=== PATIENT | male | born 2000 | race American Indian/Alaskan Native ===

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

== ENCOUNTER 2022-03-27 11:12 | Emergency (ER) | payer MEDICAID, OTHER ==
[2022-03-27 11:12] VITALS: BP 145/78; PULSE 73
[2022-03-27 12:22] LABS: CORONAVIRUS COVID-19 NAA NEGATIVE (NEGATIVE); RESPIRATORY SYNCYTIAL VIR NAA NEGATIVE (NEGATIVE)
== END 2022-03-27 12:50 | disposition home or self-care (01) ==
LOC: DL.ED 11:12
DX: R51.9 Headache, unspecified (principal); R09.81 Nasal congestion; F17.210 Nicotine dependence, cigarettes, uncomplicated; E66.9 Obesity, unspecified; Z68.33 Body mass index [BMI] 33.0-33.9, adult; Z20.822 Contact with and (suspected) exposure to COVID-19
CPT/HCPCS: 0241U; 99283; 99284

== ENCOUNTER 2022-10-28 21:16 | Emergency (ER) | payer OTHER, MEDICAID | END 2022-10-28 22:30 | disposition left against medical advice (07) | LOC: DL.ED 21:16 | DX: Z53.21 Procedure and treatment not carried out due to patient leaving prior to being seen by health care provider (principal) ==

== ENCOUNTER 2022-11-01 02:14 | Emergency (ER) | payer OTHER, MEDICAID ==
[2022-11-01 02:30] VITALS: BP 139/79; PULSE 103
[2022-11-01] MEDS ORDERED: Ketorolac 30 MG/ML SDV IM ONE (03:24)
== END 2022-11-01 04:01 | disposition home or self-care (01) ==
LOC: DL.ED 02:14
DX: S62.345A Nondisplaced fracture of base of fourth metacarpal bone, left hand, initial encounter for closed fracture (principal); E66.9 Obesity, unspecified; Z68.34 Body mass index [BMI] 34.0-34.9, adult; W22.8XXA Striking against or struck by other objects, initial encounter
CPT/HCPCS: 29125; 73090-LT; 73130-LT; 96372; 99282; 99283; J1885

== ENCOUNTER 2023-06-17 23:37 | Emergency (ER) | payer OTHER ==
[2023-06-17 23:42] LABS: BASOPHILS PERCENT AUTO 0.4 % (0.0-1.0); HEMATOCRIT 42.4 % (40.0-54.0); HEMOGLOBIN 14.8 g/dL (14.0-18.0); LYMPHOCYTES PERCENT AUTO 41.6 % (20.5-50.1); MEAN CORPUSCULAR HEMOGLOBIN 29.9 pg (27.0-34.0); MEAN CORPUSCULAR HGB CONC 34.9 g/dL (33.0-35.0); MEAN CORPUSCULAR VOLUME 85.7 fL (80-100); MONOCYTES PERCENT AUTO 8.2 % (2-8); NEUTROPHILS PERCENT AUTO 45.8 % (42.2-75.2); PLATELET COUNT,PLT 334 10^3/uL (150-450); RED BLOOD CELL COUNT 4.95 10^6/uL (4.6-6.2); WHITE BLOOD CELL COUNT,WBC 8.9 10^3/uL (5.0-10.0)
[2023-06-17 23:50] LABS: AMPHETAMINES,URINE NEGATIVE (NEGATIVE); BARBITURATES,URINE NEGATIVE (NEGATIVE); BENZODIAZEPINE,URINE NEGATIVE (NEGATIVE); MDMA (ECSTASY), URINE NEGATIVE (NEGATIVE); METHADONE,URINE NEGATIVE (NEGATIVE); METHAMPHETAMINES,URINE NEGATIVE (NEGATIVE); OPIATES,URINE NEGATIVE (NEGATIVE); OXYCODONE,URINE NEGATIVE (NEGATIVE); PHENCYCLIDINE,URINE NEGATIVE (NEGATIVE); TCA,URINE NEGATIVE (NEGATIVE)
[2023-06-17 23:51] VITALS: BP 118/67; PULSE 81
[2023-06-17] MEDS: LORazepam 1 MG Tab PO ONE (23:53)
[2023-06-18 00:03] LABS: ALANINE AMINOTRANSFERASE,ALT 46 U/L (16-63); ALBUMIN 4.1 g/dL (3.4-5.0); ALKALINE PHOSPHATASE 75 U/L (46-116); ANION GAP 18.4 mEq/L (7-13); ASPARTATE AMNIOTRANSFERASE,AST 23 U/L (15-37); BILIRUBIN TOTAL 0.6 mg/dL (0.2-1.0); BLOOD UREA NITROGEN,BUN 20 mg/dL (7-18); CALCIUM 8.8 mg/dL (8.5-10.1); CARBON DIOXIDE,CO2 21 mmol/L (21-32); CHLORIDE,CL 101 mmol/L (98-107); CREATININE 1.11 mg/dL (0.70-1.30); GLUCOSE RANDOM 108 mg/dL (70-99); POTASSIUM,K 3.4 mmol/L (3.5-5.1); PROTEIN TOTAL,TP 8.1 g/dL (6.4-8.2); SODIUM,NA 137 mmol/L (136-145)
[2023-06-18 00:05] LABS: ESTIMATED GFR 97 mL/min (>=60)
== END 2023-06-18 00:26 | disposition home or self-care (01) ==
LOC: DL.ED 23:37
DX: F41.9 Anxiety disorder, unspecified (principal); R07.9 Chest pain, unspecified; Z79.899 Other long term (current) drug therapy
CPT/HCPCS: 36415; 71045; 80053; 80305; 84484; 85025; 93005; 93010; 99284; 99285; A9270

== ENCOUNTER 2023-06-30 12:27 | Emergency (ER) | payer OTHER ==
[2023-06-30 12:43] VITALS: BP 119/93; PULSE 70
[2023-06-30 12:43] LABS: BASOPHILS PERCENT AUTO 0.6 % (0.0-1.0); EOSINOPHILS PERCENT AUTO 3.8 % (1.0-3.0); HEMATOCRIT 48.1 % (40.0-54.0); HEMOGLOBIN 16.8 g/dL (14.0-18.0); LYMPHOCYTES PERCENT AUTO 42.9 % (20.5-50.1); MEAN CORPUSCULAR HEMOGLOBIN 29.6 pg (27.0-34.0); MEAN CORPUSCULAR HGB CONC 34.9 g/dL (33.0-35.0); MEAN CORPUSCULAR VOLUME 84.7 fL (80-100); MONOCYTES PERCENT AUTO 9.4 % (2-8); NEUTROPHILS PERCENT AUTO 43.3 % (42.2-75.2); PLATELET COUNT,PLT 363 10^3/uL (150-450); RED BLOOD CELL COUNT 5.68 10^6/uL (4.6-6.2); WHITE BLOOD CELL COUNT,WBC 6.6 10^3/uL (5.0-10.0)
[2023-06-30] MEDS: Sodium Chloride 0.9% 1,000 ML IV ONE (12:59)
[2023-06-30 13:01] LABS: ALANINE AMINOTRANSFERASE,ALT 30 U/L (16-63); ALBUMIN 4.7 g/dL (3.4-5.0); ALKALINE PHOSPHATASE 93 U/L (46-116); ANION GAP 17.9 mEq/L (7-13); ASPARTATE AMNIOTRANSFERASE,AST 20 U/L (15-37); BLOOD UREA NITROGEN,BUN 15 mg/dL (7-18); BUN/CREATININE RATIO 13.3 (No establ ref range); C-REACTIVE PROTEIN < 0.50 ng/dL (<=0.50); CARBON DIOXIDE,CO2 23 mmol/L (21-32); CHLORIDE,CL 103 mmol/L (98-107); CREATININE 1.13 mg/dL (0.70-1.30); EST CRCL DRUG DOSING (CG) 100.04 mL/min; ESTIMATED GFR 95 mL/min (>=60); GLUCOSE RANDOM 94 mg/dL (70-99); POTASSIUM,K 3.9 mmol/L (3.5-5.1); PROTEIN TOTAL,TP 9.3 g/dL (6.4-8.2); SODIUM,NA 140 mmol/L (136-145)
[2023-06-30] MEDS: Iopamidol 755 Mg/ML 100 ML Bottle IVPUSH ONE (13:37)
[2023-06-30] MEDS: Iopamidol 612 MG/ML 100 ML Bottle IVPUSH ONE (13:37)
[2023-06-30 13:44] LABS: APPEARANCE,URINE CLEAR (CLEAR); BILIRUBIN,URINE NEGATIVE (NEGATIVE); COLOR,URINE YELLOW (YELLOW); GLUCOSE,URINE NEGATIVE (NEGATIVE); KETONES,URINE NEGATIVE (NEGATIVE); LEUKOCYTE ESTERASE,URINE NEGATIVE (NEGATIVE); NITRITE,URINE NEGATIVE (NEGATIVE); OCCULT BLOOD,URINE NEGATIVE (NEGATIVE); PH,URINE 8.5 (5.0-9.0); PROTEIN,URINE NEGATIVE (NEGATIVE); UROBILINOGEN,URINE 0.2 mg/dL (0.2-1.0)
[2023-06-30 13:45] LABS: BARBITURATES,URINE NEGATIVE (NEGATIVE); BENZODIAZEPINE,URINE NEGATIVE (NEGATIVE); MDMA (ECSTASY), URINE NEGATIVE (NEGATIVE); METHADONE,URINE NEGATIVE (NEGATIVE); METHAMPHETAMINES,URINE NEGATIVE (NEGATIVE); OPIATES,URINE NEGATIVE (NEGATIVE); TCA,URINE NEGATIVE (NEGATIVE)
[2023-06-30 13:46] LABS: AMPHETAMINES,URINE NEGATIVE (NEGATIVE); OXYCODONE,URINE NEGATIVE (NEGATIVE); PHENCYCLIDINE,URINE NEGATIVE (NEGATIVE)
== END 2023-06-30 14:44 | disposition home or self-care (01) ==
LOC: DL.ED 12:27
DX: R07.89 Other chest pain (principal); F41.9 Anxiety disorder, unspecified; E66.9 Obesity, unspecified; Z68.37 Body mass index [BMI] 37.0-37.9, adult; Z79.899 Other long term (current) drug therapy
CPT/HCPCS: 36415; 71275; 80053; 80305; 81003; 83690; 84484; 85025; 86140; 93005; 99285; J7030; Q9967

== ENCOUNTER 2024-11-06 16:25 | Emergency (ER) | payer OTHER ==
[2024-11-06 16:49] LABS: BASOPHILS PERCENT AUTO 0.2 % (0.0-1.0); EOSINOPHILS PERCENT AUTO 0.8 % (1.0-3.0); LYMPHOCYTES PERCENT AUTO 16.0 % (20.5-50.1); MONOCYTES PERCENT AUTO 3.4 % (2-8); NEUTROPHILS PERCENT AUTO 79.6 % (42.2-75.2); PLATELET COUNT,PLT 348 10^3/uL (150-450); RED BLOOD CELL COUNT 5.43 10^6/uL (4.6-6.2); WHITE BLOOD CELL COUNT,WBC 9.7 10^3/uL (5.0-10.0)
[2024-11-06 17:00] LABS: A/G RATIO 1.1; ALANINE AMINOTRANSFERASE,ALT 27 U/L (16-63); ASPARTATE AMNIOTRANSFERASE,AST 23 U/L (15-37); BILIRUBIN TOTAL 0.6 mg/dL (0.2-1.0); BLOOD UREA NITROGEN,BUN 10 mg/dL (7-18); CARBON DIOXIDE,CO2 16 mmol/L (21-32); CHLORIDE,CL 108 mmol/L (98-107); CREATININE 1.28 mg/dL (0.70-1.30); ETHANOL BLOOD MEDICAL 237 mg/dL (0); GLUCOSE RANDOM 104 mg/dL (70-99); POTASSIUM,K 3.0 mmol/L (3.5-5.1); PROTEIN TOTAL,TP 8.8 g/dL (6.4-8.2)
[2024-11-06 17:03] LABS: SODIUM,NA 145 mmol/L (136-145)
[2024-11-06 17:04] LABS: ESTIMATED GFR 81 mL/min (>=60)
[2024-11-06 17:05] LABS: LACTIC ACID 9.5 mmol/L (0.4-2.0)
[2024-11-06] MEDS ORDERED: Sodium Chloride 0.9% 10 ML Syringe FLUSH PRN (17:16)
[2024-11-06] MEDS ORDERED: Midazolam 1 MG/ML 2 ML SDV IV ONE (17:52)
[2024-11-06] MEDS: Midazolam 1 MG/ML 2 ML SDV IVPUSH ONE (17:54)
[2024-11-06] MEDS ORDERED: diphenhydrAMINE 50 MG/ML SDV IVPUSH ONE (18:02)
[2024-11-06] MEDS ORDERED: diphenhydrAMINE 50 MG/ML SDV ONE (18:02)
[2024-11-06] MEDS ORDERED: diphenhydrAMINE 50 MG/ML SDV IV ONE (18:05)
[2024-11-06 18:22] LABS: APPEARANCE,URINE CLEAR (CLEAR); GLUCOSE,URINE NEGATIVE (NEGATIVE); OCCULT BLOOD,URINE SMALL (NEGATIVE)
[2024-11-06 18:24] LABS: AMPHETAMINES,URINE NEGATIVE (NEGATIVE); BARBITURATES,URINE NEGATIVE (NEGATIVE); MDMA (ECSTASY), URINE NEGATIVE (NEGATIVE); METHAMPHETAMINES,URINE NEGATIVE (NEGATIVE); OPIATES,URINE NEGATIVE (NEGATIVE); OXYCODONE,URINE NEGATIVE (NEGATIVE); PHENCYCLIDINE,URINE NEGATIVE (NEGATIVE); TCA,URINE NEGATIVE (NEGATIVE)
[2024-11-06 18:33] LABS: EPITHELIAL CELLS,URINE FEW /HPF (NOT SEEN)
[2024-11-06 19:46] VITALS: BP 115/54; PULSE 91
== END 2024-11-06 21:14 | disposition home or self-care (01) ==
LOC: DL.ED 16:25
DX: F10.129 Alcohol abuse with intoxication, unspecified (principal); E87.20 Acidosis, unspecified; R04.0 Epistaxis; Z79.899 Other long term (current) drug therapy; Y90.9 Presence of alcohol in blood, level not specified
CPT/HCPCS: 36415; 70450; 70486; 71045; 72125; 72170; 80053; 80305; 80307; 81001; 83605; 83735; 85025; 96361; 96374; 99284; 99285; J1200; J1630; J2250; J7030